=== PATIENT | female | born 1930 | race Caucasian/White ===

== ENCOUNTER 2017-07-14 18:25 | Emergency (ER) | payer OTHER ==
[~2017-07-14] VITALS: Ht 167.6 cm; Wt 73.7 kg
[~2017-07-14 18:25] MED LIST: AMLODIPINE 1 MG/ML GT; AMLODIPINE BESYL5 MG GT; ATIVAN1 MG PO; Ativan PO; CARBAMAZEPINE100 MG GT; CARBAMAZEPINE100 MG PO; DAILY VALUE1 EACH PO; EFFEXOR37.5 MG PO; Ecotrin PO; Effexor XR PO; Feosol PO; HYDROXYZINE HCL50 MG PO; LEVO-T50 MCG PO; LOPRESSOR25 MG GT; Levothroid,Synthroid PO; Lotrel 5/20 PO; METOPROLOL GT; PRINIVIL20 MG PO; Theragran PO; Vicodin,Norco 5/325 PO; [UNRECOGNIZED DRUG - OTHER] GT; celeBREX PO
[2017-07-14 22:14] VITALS: BP 165/73
== END 2017-07-14 22:16 | disposition home or self-care (01) ==
LOC: EME 18:25
PROC: 0HQ0XZZ Repair Scalp Skin, External Approach (ICD-10-PCS; principal; 2017-07-14)
DX: S01.01XA Laceration without foreign body of scalp, initial encounter (principal); W01.0XXA Fall on same level from slipping, tripping and stumbling without subsequent striking against object, initial encounter; G50.0 Trigeminal neuralgia; H53.2 Diplopia; I10 Essential (primary) hypertension; Z87.891 Personal history of nicotine dependence
CPT/HCPCS: 99281; 99285